=== PATIENT | female | born 1960 | race Asian ===

== ENCOUNTER 2017-01-01 19:33 | Emergency (ER) | payer BC ==
--- NOTE | 2017-01-01 21:14 | ED Physician Chart ---
Chief Complaint/HPI - Patient Information Date Seen:: 01/01/17 Time Seen:: 20:50 Chief Complaint:: R index finger pad lac Allergies:: Allergies Allergy/AdvReac Type Severity Reaction Status Date / Time No Known Allergies Allergy Verified 01/01/17 20:27 Vitals:: Vital Signs - 8 hr 01/01/17 01/01/17 20:00 21:05 Temp 97.7 F 97.9 F HR 90 81 RR 18 17 BP 149/79 139/87 O2 Sat % 100 100 Historian:: Patient Review of Systems - Review of Systems General/Constitutional: No fever, No chills Skin: Other (1.0 cm lac to pad of R index finger.) Head: No headache Eyes: No loss of vision ENT: No earache, No sore throat Neck: No neck pain Cardio Vascular: No chest pain, No palpitations Pulmonary: No SOB, No cough GI: No nausea, No vomiting, No diarrhea G/U: No dysuria Musculoskeletal: No bone or joint pain Psychiatric: No prior psych history Neurological: No syncope, No focal symptoms Past Medical History - Past Medical History Past Medical History: HTN, DM, Dyslipidemia (metformin, januvia, lipitor, diovan ), Other (protienuria ) Family History: Diabetes Melitus Social History: Non Smoker, No Alcohol Surgical History: None Psychiatricy History: None (januvia, metformin, diovan, lipitor) Medication Reviewed:: lipitor, metformin, diovan, januvia Family Medical History - Family Member Mother History Unknown: Yes (DM, no other know congenital disease.) Physical Exam - Physical Examination General/Constitutional: Awake, Well-developed, well-nourished, Alert, No distress, GCS 15, Non-toxic appearing, Ambulatory Head: Atraumatic Eyes: Lids, conjuctiva normal, PERRL, EOMI Skin: Nl inspection ENMT: External ears, nose nl Neck: Nontender, Full ROM w/o pain Respiratory: Nl effort/Exclusion, Clear to Auscultation Cardio Vascular: RRR, No murmur, gallop, rubs GI: No tenderness/rebounding/guarding : No CVA tenderness Extremities: Full ROM, normal strength in all extremities Other Extremities comments:: 1 cm lac to index finger pad. No nail involvement. Does not cross DIP joint. Good ROM and good sensation. Neuro/Psych: Alert/oriented, Normal motor strength Labs/Radiology/EKG Results - Lab Results Results: Tdap verbally ordered as [facility] system would not take order. Suture tray, 5- 0 nylon, 1% lidocaine without epi also ordered and used. Wound prepped with Betadyne and draped in sterile fashion. Injected with 1% lido without epi. Cleaned, explored and copiously irrigated with normal saline. Sutured with 5 - 0 nylon in simple interrupted fashion. Pt. tolerated the procedure well. ED Septic Shock - . Is Septic Shock (SBP<90, OR Lactate>4 mmol\L) present?: No - <6hrs of presentation: Vital Signs: Vital Signs - 8 hr 01/01/17 01/01/17 20:00 21:05 Temp 97.7 F 97.9 F HR 90 81 RR 18 17 BP 149/79 139/87 O2 Sat % 100 100 Reassessment (Disposition) - Diagnosis Diagnosis:: Dx: Acute finger laceration, 1 cm - Aftercare/Follow up Instructions Aftercare/Follow-Up Instructions:: Counseled pt & family regarding lab results/ diagnosis & need follow up - Patient Disposition Condition at Disposition:: Stable ED Discharge Plan - Patient Disposition Instructions: Laceration Care, Adult, [id number], Suture Removal Additional Instructions: follow up with your primary medical doctor in 8-10 days for suture removal keep wound clean and dry watch wound for signs of infection
== END 2017-01-01 21:10 | disposition home or self-care (01) ==
LOC: ER 19:33
DX: S61.210A Laceration without foreign body of right index finger without damage to nail, initial encounter (principal); I10 Essential (primary) hypertension; E11.9 Type 2 diabetes mellitus without complications; E78.5 Hyperlipidemia, unspecified; X58.XXXA Exposure to other specified factors, initial encounter; Y93.89 Activity, other specified; Y92.89 Other specified places as the place of occurrence of the external cause; Y99.8 Other external cause status
CPT/HCPCS: 12001; J2001; Z7502; Z7610

== ENCOUNTER 2017-01-11 12:28 | Emergency (ER) | payer BC ==
[2017-01-11 12:36] VITALS: BP 124/75
--- NOTE | 2017-01-11 13:08 | ED Physician Chart ---
Chief Complaint/HPI - Patient Information Date Seen:: 01/11/17 Time Seen:: 12:55 Chief Complaint:: SUTURE REMOVAL History of Present Illness:: The patient had cut her distal right index finger while opening a can of tuna on January 01. Is brought to the emergency department and the wound was cleaned and sutured with 5 stitches. She has no pain in the area the present time. Allergies:: Allergies Allergy/AdvReac Type Severity Reaction Status Date / Time No Known Allergies Allergy Verified 01/01/17 20:27 Vitals:: Vital Signs - 8 hr 01/11/17 01/11/17 12:36 12:38 HR 74 RR 16 BP 124/75 124/76 O2 Sat % 98 Review of Systems - Review of Systems General/Constitutional: No fever, No chills, No weakness, No edema Skin: No rash Past Medical History - Past Medical History Past Medical History: DM, Dyslipidemia Social History: Non Smoker, No Alcohol Family Medical History - Family Member Mother History Unknown: Yes (DM, no other know congenital disease.) Living Status: Hx Family Diabetes: Yes Labs/Radiology/EKG Results - Lab Results Results: No laboratory or radiographic studies indicated. Assessment - Assessment General Assessment: CASE SUMMARY: this 56-year-old female returns to the emergency department for suture removal which were placed 10 days ago. On examination of the distal right index finger there is no signs of infection or dehiscence. Nursing staff removed all five sutures which were previously in place. The wound was then Steri-Strips. Patient tolerated the procedure without difficulty. Discharged with instructions to return to the emergency department only if there was some further problem with the laceration. Discharged in stable condition. ED Septic Shock - . Is Septic Shock (SBP<90, OR Lactate>4 mmol\L) present?: No - <6hrs of presentation: Vital Signs: Vital Signs - 8 hr 01/11/17 01/11/17 12:36 12:38 HR 74 RR 16 BP 124/75 124/76 O2 Sat % 98 Reassessment (Disposition) - Reassessment Reassessment Condition:: Improved - Diagnosis Diagnosis:: WELL HEELING RT INDEX FINGER LACERATION. - Patient Disposition Discharge/Transfer:: Home ED Discharge Plan - Patient Disposition Admit/Discharge/Transfer: PT DISCHARGED HOME Condition at Disposition: Stable Instructions: Suture Removal Accepting Physician: Jay Velasquez [Other] - 1-3 Days
== END 2017-01-11 13:25 | disposition home or self-care (01) ==
LOC: ER 12:28
DX: S61.210A Laceration without foreign body of right index finger without damage to nail, initial encounter (principal); E11.9 Type 2 diabetes mellitus without complications; E78.5 Hyperlipidemia, unspecified; X58.XXXA Exposure to other specified factors, initial encounter; Y93.89 Activity, other specified; Y92.89 Other specified places as the place of occurrence of the external cause; Y99.8 Other external cause status